=== PATIENT | male | born 1955 | race Caucasian/White ===

== ENCOUNTER 2021-04-15 10:00 | Outpatient (RCR) | payer OTHER, MEDICARE, SELFPAY ==
--- NOTE | 2021-03-23 12:01 | PTOPEVAL ---
INITIAL PHYSICAL THERAPY EVALUATION and PLAN OF CARE Thank you for referring Bret Corado to [facility].? Bret is scheduled to be seen for physical therapy? 2x/week for 4 weeks. Please review, sign, date and return this plan of care JAYCEE. I agree with and certify that the following plan of care is medically necessary. Referring Physician Date Admitting Provider: Attending Provider: Nura Aguilar MD Referring Provider: *PT Outpatient Evaluation Start: 03/23/21 10:20 Freq: Status: Active Protocol: Document 03/23/21 10:21 CORY (Rec: 03/23/21 11:59 CORY [id number]) Therapy Assessment Status Assessment Status Assessment Status Evaluation Outpatient Past Medical History Past Medical History Source of Past Medical History Patient Cardiovascular History Hx Coronary Stent Yes: 6 stents Hx Hypercholesterolemia Yes Hx Hypertension Yes Hx Myocardial Infarction Yes: 2002 Respiratory History Hx Sleep Apnea Yes Hx Other Respiratory Disorders Yes: seasonal allergies Genitourinary History Hx Prostatectomy Yes: 2017 Musculoskeletal History Hx Amputation Yes: L index finger - last 2 segments Hx Back Pain Yes Hx Spinal Surgery Yes: back 1978 Endocrine History Hx Diabetes Yes Other History Hx Cancer Yes: prostate - prostectectomy Evaluation Information Problem Diagnosis R Trochanteric bursitis, lumbar spine pain Onset 1977 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 Last 4 years - gradually more pain has returned. Sharp pains down both legs - starts in morning more on the R leg - as day goes on feels more on L leg. Diagnostic testing - bulging discs - seeing pain MD - receiving injections - but that MD . Stopped going at that time. Sleeping - pain will awaken him - sleeps on back or L side - but that is becoming more painful
--- NOTE | 2021-04-20 09:19 | PCPTNOTE ---
Patient called & cancelled scheduled appointment this date due to dental emergency.
--- NOTE | 2021-04-29 14:56 | PCPTNOTE ---
PHYSICAL THERAPY DISCHARGE SUMMARY Admitting Provider: Attending Provider: Nura Aguilar MD Patient:Bret Corado Date of :1955 Bret has not returned for any further treatments since 04/15/2021. He needed to cancel his 04/20/21 appointment due to dental procedure. He has not called to reschedule this visit, therefore he will be discharged at this time. Bret?s initial visit was on 03/23/2021 10:00 and he had a total of 7 visits. The goals have been partially met. Bret did well with core strengthening, some decrease with back pain levels, but still having difficulty with prolonged standing. Unable to perform full reassessment as he did not return for re-evaluation. Thank you for referring Bret to [facility]. Please review, sign, date and return this discharge summary JAYCEE. I have been updated about Bret's current status and I agree with discharge from the above service at this time. Referring Physician Date
== END 2021-04-29 15:32 | disposition home or self-care (01) ==
LOC: ANHHIPT 10:00
PROVIDERS: PCP Family Medicine; Visit Provider Orthopaedic Surgery
DX: M54.5 Low back pain (principal); M70.61 Trochanteric bursitis, right hip
CPT/HCPCS: 97110; 97140; 97162

== ENCOUNTER → 2021-04-15 12:19 | Outpatient (CLI) | payer OTHER, MEDICARE, SELFPAY ==
--- NOTE | ~2021-04-15 | MR_ITS ---
EXAMINATION: MR lumbar spine wo con DATE: 04/15/2021 13:03 INDICATION: Low back pain. TECHNIQUE: Magnetic resonance imaging (MRI) of the lumbar spine was performed without intravenous con trast. Sequences included sagittal T2-weighted FSE, sagittal T2-weighted FS FSE, sagittal T1-weighted FSE, and axial T2-weighted FSE. COMPARISON: Lumbar spine MRI 04/05/2011, chest 2 views 11/09/2017 FINDINGS: There is 5 degrees levocurvature of thoracolumbar spine. There are hypoplastic ribs at L1. S1 is a transitional segment. There is 5 mm retrolisthesis of L4 on L5 and 3 mm anterolisthesis of L5 on S1. There is mild chronic anterior wedging of T12-L2 vertebral bodies. There are Schmorl's nodes at all levels. There is mildly decreased disc height at L2-L3 and L3-L4, severely decreased disc heig ht at L4-L5, and moderately decreased disc height at L5-S1 with endplate remodeling. The distal spina l cord signal intensity is normal. The conus medullaris is at L1. The following disc levels are speci fically discussed: L1-L2: The disc does not extend beyond the endplate margin. There is mild bilateral facet joint osteo arthritis. There is no neural foraminal stenosis. There is no central canal stenosis. L2-L3: The disc is bulging and has an annular fissure. There is mild bilateral facet joint osteoarthr itis. There is mild bilateral neural foraminal stenosis. There is mild central canal stenosis. L3-L4: The disc is bulging. There is mild bilateral facet joint osteoarthritis. There is mild bilater al neural foraminal stenosis. There is mild central canal stenosis. L4-L5: The disc is bulging and has an annular fissure. There is severe bilateral facet joint osteoart hritis. There is moderate bilateral neural foraminal stenosis. There is severe central canal stenosis . L5-S1: The disc is bulging and has an annular fissure. There is severe bilateral facet joint osteoart hritis. There is moderate bilateral neural foraminal stenosis. There is moderate central canal stenos is. IMPRESSION: 1. Severe lumbar spondylosis, worsened from 04/05/2011. Reviewed, dictated and finalized at location B.
== END ==
PROVIDERS: PCP Family Medicine; Visit Provider Nurse Practitioner Family
DX: M25.551 Pain in right hip (principal); M54.5 Low back pain; M47.816 Spondylosis without myelopathy or radiculopathy, lumbar region
CPT/HCPCS: 72148

== ENCOUNTER → 2021-05-19 11:08 | Outpatient (CLI) | payer OTHER, MEDICARE, SELFPAY ==
--- NOTE | ~2021-05-19 | XR_ITS ---
EXAMINATION: XR hand RT 2V DATE: 05/19/2021 11:26 INDICATION: Right hand pain TECHNIQUE: Posteroanterior, oblique and lateral views of the right hand were obtained. COMPARISON: None. FINDINGS: Alignment is normal. Short third distal phalanx with irregular contour to the tuft which could repres ent an old healed fracture. No acute fracture. Polyarticular osteoarthritis, moderate severity at the distal interphalangeal, first interphalangeal and fifth proximal interphalangeal joints and mild at the remaining interphalangeal joints, the first-third metacarpophalangeal, first carpometacarpal and triscaphe joints. No erosions to suggest an inflammatory arthritis. Calcifications along the radial a rtery. Soft tissues tissue swelling along the palmar aspect of the hand at the base of the fourth dig it and dorsal to the second metacarpophalangeal joint. IMPRESSION: 1. 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 No acute osseous abnormality. Reviewed, dictated and finalized at location A. IMPRESSION: 1. 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 No acute os seous abnormality.
== END ==
PROVIDERS: PCP Family Medicine; Visit Provider Physician Assistant Medical
DX: M18.11 Unilateral primary osteoarthritis of first carpometacarpal joint, right hand (principal); M19.041 Primary osteoarthritis, right hand
CPT/HCPCS: 73120

== ENCOUNTER 2021-09-21 12:43 | Emergency (ER) | payer OTHER, MEDICARE, SELFPAY ==
--- NOTE | ~2021-09-21 | XR_ITS ---
XR chest 1V portable DATE: 09/21/2021 19:50 INDICATION: Shortness of breath for one week TECHNIQUE: Portable AP chest on 09/17/2021 at 1941 hours COMPARISON: 11/09/2017 AP and lateral chest FINDINGS: Heart size normal. There is coronary artery calcification or possible stent. Descending tho racic and aortic arch calcification. No hilar or mediastinal enlargement. There is minimal atelectasis at the lung bases. No pleural effusion or pulmonary vascular congestion or pneumothorax. Mild levoscoliosis of the thoracic spine. Degenerative spurring of the thoracic spine. IMPRESSION: Minimal atelectasis at the lung bases Coronary artery calcification or coronary stent Aortic calcification Reviewed, dictated and finalized at location A. [employer]
[2021-09-21 12:52] VITALS: BP 104/67; PULSE 80; RESP 18; TEMP 35.9; O2SAT 95
[2021-09-21 15:55] VITALS: BP 104/56; PULSE 78; RESP 20; TEMP 37.3; O2SAT 94
[2021-09-21 19:35] VITALS: BP 100/67; PULSE 85; RESP 18; O2SAT 98
--- NOTE | 2021-09-21 19:42 | ED.GENADULT ---
HPI - General Adult General Chief complaint: Shortness of Breath/Dyspnea <Becky Candelaria PA-C - Last Filed: 09/22/21 15:13> Stated complaint: sob, covid <Becky Candelaria PA-C - Last Filed: 09/22/21 15:13> Time Seen by Provider: 09/21/21 19:31 <Becky Candelaria PA-C - Last Filed: 09/22/21 15:13> Source: patient <SASHA Carter Last Filed: 09/22/21 15:13> Mode of arrival: ambulatory <SASHA Carter Last Filed: 09/22/21 15:13> Limitations: no limitations <SASHA Carter Last Filed: 09/22/21 15:13> History of Present Illness HPI narrative: Patient is a 66 yo male, unvaccinated against COVID, with CC of fatigue and cough for almost 1 week. Patient states his has similar symptoms and they both tested positive for COVID this morning. He states he has not had wheezing. He denies syncope or chest pain. He states he has been eating and drinking, but some less than normal. He came to the ER because he didn't know if he should receive IV fluids and medications to help with his COVID being a diabetic. <Becky Candelaria PA-C - Last Filed: 09/22/21 15:13> Related Data Home medications: Home Medications Medication Instructions Recorded Confirmed atorvastatin 40 mg tablet 40 mg PO DAILY 07/10/19 07/27/21 carvedilol 25 mg tablet 25 mg PO Q12H 07/10/19 07/27/21 empagliflozin 25 mg tablet 25 mg PO DAILY 07/10/19 07/27/21 icosapent ethyl 1 gram capsule 2 gm PO BID 07/10/19 07/27/21 lisinopril 10 mg tablet 10 mg PO DAILY 07/10/19 07/27/21 nitroglycerin 0.4 mg sublingual 0.4 mg SUBLINGUAL Q5M PRN 07/10/19 07/27/21 tablet rivaroxaban 2.5 mg tablet 2.5 mg PO BID 05/12/20 07/27/21 <Becky Candelaria PA-C - Last Filed: 09/22/21 15:13> Allergies/adverse reactions: Allergies Allergy/AdvReac Type Severity Reaction Status Date / Time No Known Allergies Allergy Verified 07/27/21 13:49 <Becky Candelaria PA-C - Last Filed: 09/22/21 15:13> Review of Systems Review of Systems: CONSTITUTIONAL:Reports fatigue Denies fever, chills, or sweats. EYES: Denies visual changes, redness, or discharge. ENT: Denies rhinorrhea, congestion, sore throat, or otalgia. CARDIOVASCULAR: Denies chest pain, palpitations, or edema. RESPIRATORY: Reports cough and mild dyspnea. GASTROINTESTINAL: Denies abdominal pain, nausea, vomiting, or diarrhea. GENITOURINARY: Denies dysuria or hematuria. SKIN: Denies rash or itching. MUSCULOSKELETAL: Denies back pain, joint pain, or myalgia. NEUROLOGIC: Denies headache, numbness, dizziness, or weakness. PSYCHIATRIC: Denies anxiety or depression. <Becky Candelaria PA-C - Last Filed: 09/22/21 15:13> [facility] Past Medical History Medical History: Medical History Arthritis BMI 32.0-32.9,adult BMI 33.0-33.9,adult Diabetes Excessive thirst Low back pain Lumbar radiculopathy Lumbar spondylolysis LATRELL (obstructive sleep apnea) Sacroiliac joint pain Trochanteric bursitis, right hip Wears glasses <Becky Candelaria PA-C - Last Filed: 09/22/21 15:13> Family History Family History: Family History Father Hypertension Carcinoma of colon Sibling Hypertension Grandparent Family history of chronic obstructive pulmonary disease Family history of malignant neoplasm of bone Mother Leukemia Sibling No problems noted. Other Cerebrovascular accident Diabetes mellitus Family history of arthritis Family history of heart disease in male family member before age 55 Family history of malignant neoplasm <Becky Candelaria PA-C - Last Filed: 09/22/21 15:13> Social History Social History: Social History Tobacco type: cigarettes Second hand tobacco smoke exposure: Yes Smoking end date: 08/29/06 Alcohol intake: never Substance use: never
[2021-09-21 20:06] LABS: Basophils Percent Auto 0.2 % (0.2-1.2); Hematocrit 56.9 % (42.0-52.0); Hemoglobin 18.1 g/dL (14.0-18.0); Immature Granulocyte Absolute 0.02 K/mm3 (0.00-0.031); Immature Granulocyte Percent A 0.3 % (0-0.5); Lymphocytes Absolute Auto 1.46 K/mm3 (0.9-3.2); Lymphocytes Percent Auto 22.7 % (18.3-44.2); Mean Corpuscular HGB Conc 31.8 g/dl (32-36); Mean Corpuscular Hemoglobin 28.7 pg (26-34); Mean Corpuscular Volume 90.3 fl (80-100); Mean Platelet Volume 9.7 fl (7.4-10.4); Monocytes Absolute Auto 0.7 K/mm3 (0.1-0.6); Monocytes Percent Auto 10.7 % (2.6-8.5); Neutrophils Absolute Auto 4.2 K/mm3 (1.3-6.7); Neutrophils Percent Auto 66.1 % (45.5-73.1); Platelet Count Result 141 k/mm3 (150-375); Red Cell Distribution Width 14.8 % (11.5-14.5); White Blood Count 6.4 K/mm3 (4.5-10.0)
[2021-09-21 20:36] LABS: Alanine Aminotransferase 60 U/L (4-50); Albumin Level 4.5 g/dL (3.5-5.1); Alkaline Phosphatase 94 U/L (38-126); Anion Gap 14 mmol/L (8-16); Aspartate Amino Transferase 67 U/L (17-59); Bilirubin,Total 0.8 mg/dL (0.2-1.3); Blood Urea Nitrogen 35 mg/dL (9-20); Calcium 9.3 mg/dL (8.4-10.2); Carbon Dioxide 18 mmol/L (22-30); Chloride 106 mmol/L (98-107); Estimated CRCL calculation 50 ml/min; Estimated Glomerular Filt Rate 44; Glucose 113 mg/dL (65-110); Potassium 5.1 mmol/L (3.4-5.0); Sodium 138 mmol/L (137-145)
[2021-09-21] MEDS: SODIUM CHLORIDE 0.9% IV 1,000 ML 999 ML IV CONT (20:56)
[2021-09-21 21:44] VITALS: BP 122/58; PULSE 87; RESP 17; O2SAT 95
--- NOTE | 2021-10-01 19:06 | PC.NURSE ---
late entry fluids completed in ED prior to discharge. All fluids infused
== END 2021-09-21 21:45 | disposition home or self-care (01) ==
LOC: ANHED 20:44
PROVIDERS: Physician Assistant; Emergency Provider Emergency Medicine; PCP Family Medicine
DX: U07.1 COVID-19 (principal); E11.9 Type 2 diabetes mellitus without complications; G47.33 Obstructive sleep apnea (adult) (pediatric); M19.90 Unspecified osteoarthritis, unspecified site; Z87.891 Personal history of nicotine dependence; Z79.01 Long term (current) use of anticoagulants; Z79.84 Long term (current) use of oral hypoglycemic drugs; Z79.899 Other long term (current) drug therapy; Z79.4 Long term (current) use of insulin
CPT/HCPCS: 36415; 71045; 80053; 85025; 96360; 99283; J7030